=== PATIENT | female | born 1945 | race Caucasian/White ===

== ENCOUNTER 2023-10-06 00:20 | Inpatient (IN) | payer MEDICARE, BC ==
[2023-10-06] MEDS ORDERED: Furosemide 40 MG (4 mL) VIAL ONE ×2 (01:16→13:59)
[2023-10-06 02:17] LABS: Critical Call Chem Troponin I NUR.SM26@0215; Troponin I 0.294 ng/mL (< 0.028)
[2023-10-06] MEDS ORDERED: Ondansetron ODT 4 MG TAB PO PRN (02:20)
[2023-10-06] MEDS ORDERED: Calcium Carbonate 500 MG ChewTAB PO PRN (02:20)
[2023-10-06] MEDS ORDERED: Acetaminophen 325 MG TAB PO PRN (02:20)
[2023-10-06] MEDS ORDERED: dilTIAZem 125 MG, Admixture Fee 1 EACH in Sodium Chloride 0.9% 100 ML IVPB SCH (02:30)
[2023-10-06] MEDS ORDERED: dilTIAZem 125 MG in Sodium Chloride 0.9% 100 ML IVPB SCH (02:30)
[2023-10-06 04:22] LABS: Hematocrit 33.2 % (36.0-47.0); Hemoglobin 10.5 g/dL (12.0-16.0); Manual Diff?? YES; Mean Corpuscular HGB CONC 31.6 g/dL (32.0-36.0); Mean Corpuscular Hemoglobin 27.4 pg (27.0-31.0); Mean Corpuscular Volume 86.7 fl (78.0-98.0); Mean Platelet Volume 9.6 fL (7.4-10.4); Platelet Count 281 10x3/uL (130-400); RBC Distribution Width 13.8 % (11.5-14.5); Red Blood Cell (RBC) Count 3.83 mill/uL (4.20-5.40); White Blood Cell (WBC) Count 14.9 10x3/uL (4.8-10.8)
[2023-10-06 04:28] LABS: Delete Auto Diff?? YES
[2023-10-06 05:00] LABS: ALT (SGPT) 31 U/L (8-55); AST (SGOT) 29 U/L (5-34); Albumin 3.2 g/dL (3.4-4.8); Alkaline Phosphatase 209 U/L (40-110); Anion Gap 16 mmol/L (10-20); BUN (Urea Nitrogen) 28 mg/dL (9.8-20.1); Bilirubin, Total 1.5 mg/dL (0.2-1.2); Calc. Creatinine Clearance 0 mL/min (70-130); Calcium 8.8 mg/dL (7.8-10.44); Carbon Dioxide 17 mmol/L (23-31); Chloride 100 mmol/L (98-107); Estimated GFR 25; Globulin 3.6 g/dL (2.4-3.5); Glucose 150 mg/dL (83-110); Potassium 4.8 mmol/L (3.5-5.1); Protein, Total 6.8 g/dL (5.8-8.1); Sodium 128 mmol/L (136-145)
[2023-10-06 05:02] LABS: Band 19 % (5-11); Burr Cells SLIGHT = 2-5 cells HPF (0-1); CellaVision Operator ID lab.abc; Large Platelets 3.9 % (0-5); Lymphocytes 4 % (21-51); Metamyelocyte 1 % (0-0); Monocytes 2 % (0-10); Neutrophil 73 % (42-75); Platelet Adequacy Comment Platelets Normal; Polychromasia SLIGHT = 2-3 cells HPF (0-2); Reactive Lymphocytes 1 % (0-10); Total Cell Count 103; Toxic Granulation SLIGHT
[2023-10-06 05:12] LABS: Critical Call Chem Troponin I NUR.LM20@0510
[2023-10-06] MEDS ORDERED: Aspirin 325 mg Enteric Coated Tablet PO SCH (05:30)
[2023-10-06] MEDS ORDERED: Aspirin 81 mg Enteric Coated Tablet ONE (06:04)
[2023-10-06] MEDS ORDERED: Aspirin 325 MG TAB ONE (06:05)
[2023-10-06 07:14] LABS: Critical Call Chem Troponin I NUR.VB5@0714; Troponin I 0.562 ng/mL (< 0.028)
[2023-10-06] MEDS ORDERED: Doxycycline 100 MG CAP ONE (08:42)
[2023-10-06] MEDS ORDERED: Apixaban 5 MG TAB ONE (08:42)
[2023-10-06] MEDS ORDERED: Famotidine 20 MG TAB ONE (08:42)
[2023-10-06] MEDS ORDERED: cefTRIAXone (ROCEPHIN) 1 GM VIAL ONE (08:42)
[2023-10-06] MEDS ORDERED: Carvedilol 6.25 MG TAB ONE (08:44)
[2023-10-06] MEDS ORDERED: Amiodarone 200 MG TAB ONE (08:44)
[2023-10-06] MEDS ORDERED: Losartan 25 MG TAB ONE ×2 (08:51→08:58)
[2023-10-06] MEDS ORDERED: Losartan 25 MG TAB PO SCH (09:00)
[2023-10-06] MEDS ORDERED: cefTRIAXone\\ROCEPHIN 1 GM in Sodium Chloride 0.9% 100 ML IVPB SCH (09:00)
[2023-10-06] MEDS ORDERED: Famotidine 20 MG TAB PO SCH (09:00)
[2023-10-06] MEDS: Apixaban 5 MG TAB PO SCH (09:00)
[2023-10-06] MEDS: Doxycycline 100 MG CAP PO SCH ×2 (09:01→20:57)
[2023-10-06] MEDS: Rosuvastatin 20 MG TAB PO SCH (09:17)
[2023-10-06] MEDS: Furosemide 40 MG (4 mL) VIAL SLOW IVP SCH (14:07)
[2023-10-06 18:23] LABS: Strep pneumo Urine Ag NEGATIVE (NEGATIVE)
[2023-10-06 18:27] LABS: Legionella Urinary Ag Negative (Negative)
[2023-10-06] MEDS: Ipratropium/Albuterol 3 ML NEB NEB SCH (18:47)
[2023-10-06] MEDS: Metoprolol Tartrate 25 MG TAB PO SCH (20:58)
[2023-10-07 04:31] LABS: #Basophils 0.2 thou/uL (0.0-0.2); #Monocytes 1.4 thou/uL (0.11-0.59); #Neutrophils 21.2 thou/uL (1.40-6.50); %Basophils 0.7 % (0.0-1.0); %Eosinophils 0.1 % (0.0-10.0); %Lymphocytes 4.1 % (21.0-51.0); %Monocytes 5.7 % (0.0-10.0); Hematocrit 34.4 % (36.0-47.0); Hemoglobin 10.6 g/dL (12.0-16.0); Mean Corpuscular HGB CONC 30.8 g/dL (32.0-36.0); Mean Corpuscular Hemoglobin 27.5 pg (27.0-31.0); Mean Corpuscular Volume 89.1 fl (78.0-98.0); Mean Platelet Volume 9.3 fL (7.4-10.4); Platelet Count 378 10x3/uL (130-400); Red Blood Cell (RBC) Count 3.86 mill/uL (4.20-5.40); White Blood Cell (WBC) Count 24.4 10x3/uL (4.8-10.8)
[2023-10-07 04:51] LABS: Anion Gap 16 mmol/L (10-20); BUN (Urea Nitrogen) 44 mg/dL (9.8-20.1); Calc. Creatinine Clearance 11 mL/min (70-130); Carbon Dioxide 17 mmol/L (23-31); Chloride 101 mmol/L (98-107); Estimated GFR 17; Glucose 139 mg/dL (83-110); Potassium 4.8 mmol/L (3.5-5.1); Sodium 129 mmol/L (136-145)
[2023-10-07] MEDS: Furosemide 40 MG (4 mL) VIAL SLOW IVP SCH (05:08)
[2023-10-07] MEDS: Ipratropium/Albuterol 3 ML NEB NEB SCH ×2 (07:17→18:49)
[2023-10-07] MEDS ORDERED: hydrALAZINE 20 MG/ML VIAL SLOW IVP PRN (08:00)
[2023-10-07] MEDS ORDERED: Piperacillin/Tazobactam 3.375 GM in Sodium Chloride 0.9% 100 ML IVPB SCH (08:30)
[2023-10-07] MEDS ORDERED: Sodium Chloride 0.9% 1,000 ML IV SCH (09:00)
[2023-10-07] MEDS: Metoprolol Tartrate 25 MG TAB PO SCH ×2 (09:23→21:21)
[2023-10-07] MEDS: Apixaban 5 MG TAB PO SCH ×2 (09:23→21:21)
[2023-10-07] MEDS: Rosuvastatin 20 MG TAB PO SCH (09:23)
[2023-10-07 09:24] LABS: Lactic Acid 1.2 mmol/L (0.5-2.2)
[2023-10-07] MEDS: Piperacillin/Tazobactam 3.375 GM in Sodium Chloride 0.9% 100 ML IVPB SCH (13:17)
[2023-10-07] MEDS: guaiFENesin/DM ER PO PRN (21:22)
[2023-10-08] MEDS: Piperacillin/Tazobactam 3.375 GM in Sodium Chloride 0.9% 100 ML IVPB SCH ×2 (01:31→12:44)
[2023-10-08] MEDS: Ipratropium/Albuterol 3 ML NEB NEB SCH ×2 (07:34→19:04)
[2023-10-08] MEDS: Famotidine 20 MG TAB PO SCH (08:58)
[2023-10-08] MEDS: Apixaban 5 MG TAB PO SCH ×2 (08:59→22:39)
[2023-10-08] MEDS: Metoprolol Tartrate 25 MG TAB PO SCH ×2 (08:59→22:39)
[2023-10-08] MEDS: Rosuvastatin 20 MG TAB PO SCH (08:59)
[2023-10-08] MEDS: guaiFENesin/DM ER PO PRN ×2 (09:01→22:42)
[2023-10-08 10:20] LABS: Hematocrit 36.1 % (36.0-47.0); Hemoglobin 10.7 g/dL (12.0-16.0); Manual Diff?? YES; Mean Corpuscular HGB CONC 29.6 g/dL (32.0-36.0); Mean Corpuscular Hemoglobin 27.6 pg (27.0-31.0); Mean Corpuscular Volume 93.3 fl (78.0-98.0); Mean Platelet Volume 8.9 fL (7.4-10.4); Platelet Count 348 10x3/uL (130-400); RBC Distribution Width 14.1 % (11.5-14.5); Red Blood Cell (RBC) Count 3.87 mill/uL (4.20-5.40); White Blood Cell (WBC) Count 23.9 10x3/uL (4.8-10.8)
[2023-10-08 10:25] LABS: Delete Auto Diff?? YES
[2023-10-08 10:37] LABS: ALT (SGPT) 31 U/L (8-55); AST (SGOT) 35 U/L (5-34); Albumin 3.3 g/dL (3.4-4.8); Alkaline Phosphatase 181 U/L (40-110); Anion Gap 16 mmol/L (10-20); BUN (Urea Nitrogen) 50 mg/dL (9.8-20.1); Bilirubin, Total 0.9 mg/dL (0.2-1.2); Calc. Creatinine Clearance 23 mL/min (70-130); Calcium 8.9 mg/dL (7.8-10.44); Carbon Dioxide 18 mmol/L (23-31); Chloride 102 mmol/L (98-107); Estimated GFR 16; Globulin 3.6 g/dL (2.4-3.5); Glucose 96 mg/dL (83-110); Potassium 4.8 mmol/L (3.5-5.1); Protein, Total 6.9 g/dL (5.8-8.1); Sodium 131 mmol/L (136-145)
[2023-10-08 10:57] LABS: Band 13 % (5-11); Burr Cells SLIGHT = 2-5 cells HPF (0-1); CellaVision Operator ID LAB.KW3; Lymphocytes 5 % (21-51); Metamyelocyte 2 % (0-0); Monocytes 3 % (0-10); Neutrophil 75 % (42-75); Platelet Adequacy Comment Platelets Normal; Poikilocytosis SLIGHT = 6-15 cells HPF (0-5); Polychromasia SLIGHT = 2-3 cells HPF (0-2); Reactive Lymphocytes 1 % (0-10); Schistocytes SLIGHT = 2-5 cells HPF (0-1); Total Cell Count 101
[2023-10-09] MEDS: Piperacillin/Tazobactam 3.375 GM in Sodium Chloride 0.9% 100 ML IVPB SCH ×2 (03:04→14:02)
[2023-10-09] MEDS: Ipratropium/Albuterol 3 ML NEB NEB SCH ×2 (07:25→19:06)
[2023-10-09] MEDS ORDERED: Sodium Chloride 0.9% 1,000 ML IV SCH (08:45)
[2023-10-09] MEDS: Metoprolol Tartrate 25 MG TAB PO SCH ×2 (09:12→21:21)
[2023-10-09] MEDS: guaiFENesin/DM ER PO PRN ×2 (09:12→21:21)
[2023-10-09] MEDS: Rosuvastatin 20 MG TAB PO SCH (09:12)
[2023-10-09] MEDS: Apixaban 5 MG TAB PO SCH ×2 (09:12→21:21)
[2023-10-09 10:45] LABS: Anion Gap 12 mmol/L (10-20); BUN (Urea Nitrogen) 45 mg/dL (9.8-20.1); Calc. Creatinine Clearance 26 mL/min (70-130); Calcium 8.7 mg/dL (7.8-10.44); Carbon Dioxide 23 mmol/L (23-31); Chloride 103 mmol/L (98-107); Estimated GFR 18; Glucose 144 mg/dL (83-110); Potassium 4.1 mmol/L (3.5-5.1); Sodium 134 mmol/L (136-145)
[2023-10-09] MEDS: QUEtiapine 25 MG TAB PO SCH (21:20)
[2023-10-10] MEDS: Piperacillin/Tazobactam 3.375 GM in Sodium Chloride 0.9% 100 ML IVPB SCH ×2 (00:54→13:11)
[2023-10-10 04:11] LABS: Hematocrit 31.4 % (36.0-47.0); Hemoglobin 10.1 g/dL (12.0-16.0); Manual Diff?? YES; Mean Corpuscular HGB CONC 32.2 g/dL (32.0-36.0); Mean Platelet Volume 8.7 fL (7.4-10.4); Platelet Count 275 10x3/uL (130-400); RBC Distribution Width 13.6 % (11.5-14.5); Red Blood Cell (RBC) Count 3.61 mill/uL (4.20-5.40); White Blood Cell (WBC) Count 21.8 10x3/uL (4.8-10.8)
[2023-10-10 04:14] LABS: Delete Auto Diff?? YES
[2023-10-10 04:30] LABS: Anion Gap 13 mmol/L (10-20); BUN (Urea Nitrogen) 36 mg/dL (9.8-20.1); Calc. Creatinine Clearance 29 mL/min (70-130); Calcium 8.8 mg/dL (7.8-10.44); Carbon Dioxide 22 mmol/L (23-31); Chloride 103 mmol/L (98-107); Estimated GFR 21; Glucose 99 mg/dL (83-110); Potassium 3.9 mmol/L (3.5-5.1); Sodium 134 mmol/L (136-145)
[2023-10-10 04:59] LABS: Band 1 % (5-11); Burr Cells SLIGHT = 2-5 cells HPF (0-1); CellaVision Operator ID lab.sh2; Lymphocytes 9 % (21-51); Monocytes 11 % (0-10); Neutrophil 79 % (42-75); Ovalocytes SLIGHT = 2-5 cells HPF (0-1); Platelet Adequacy Comment Platelets Normal; Polychromasia SLIGHT = 2-3 cells HPF (0-2); Total Cell Count 101
[2023-10-10] MEDS: Ipratropium/Albuterol 3 ML NEB NEB SCH ×2 (07:33→18:48)
[2023-10-10] MEDS ORDERED: Amlodipine 5 MG TAB PO SCH (09:00)
[2023-10-10] MEDS: Rosuvastatin 20 MG TAB PO SCH (09:38)
[2023-10-10] MEDS: Apixaban 5 MG TAB PO SCH ×2 (09:38→20:40)
[2023-10-10] MEDS: Metoprolol Tartrate 25 MG TAB PO SCH ×2 (09:38→20:40)
[2023-10-10] MEDS: Famotidine 20 MG TAB PO SCH (09:38)
[2023-10-10] MEDS ORDERED: Piperacillin/Tazobactam 3.375 GM VIAL ONE ×2 (12:40→12:56)
[2023-10-10] MEDS ORDERED: Gabapentin 100 MG CAP PO SCH (14:00)
[2023-10-10] MEDS: QUEtiapine 25 MG TAB PO SCH (20:40)
[2023-10-11] MEDS: Piperacillin/Tazobactam 3.375 GM in Sodium Chloride 0.9% 100 ML IVPB SCH ×3 (00:55→20:48)
[2023-10-11 07:30] LABS: #Basophils 0.2 thou/uL (0.0-0.2); #Eosinphils 0.2 thou/uL (0.0-0.7); #Monocytes 1.7 thou/uL (0.11-0.59); %Basophils 0.9 % (0.0-1.0); %Eosinophils 1.1 % (0.0-10.0); %Lymphocytes 8.3 % (21.0-51.0); %Monocytes 8.9 % (0.0-10.0); %Neutrophils 72.1 % (42.0-75.0); Hematocrit 33.1 % (36.0-47.0); Hemoglobin 10.4 g/dL (12.0-16.0); Manual Diff?? YES; Mean Corpuscular HGB CONC 31.4 g/dL (32.0-36.0); Mean Corpuscular Hemoglobin 27.4 pg (27.0-31.0); Mean Corpuscular Volume 87.3 fl (78.0-98.0); Platelet Count 274 10x3/uL (130-400); RBC Distribution Width 13.8 % (11.5-14.5); Red Blood Cell (RBC) Count 3.79 mill/uL (4.20-5.40); White Blood Cell (WBC) Count 19.5 10x3/uL (4.8-10.8)
[2023-10-11] MEDS: Ipratropium/Albuterol 3 ML NEB NEB SCH ×2 (07:39→18:54)
[2023-10-11 07:42] LABS: Anion Gap 14 mmol/L (10-20); BUN (Urea Nitrogen) 26 mg/dL (9.8-20.1); Calc. Creatinine Clearance 33 mL/min (70-130); Carbon Dioxide 24 mmol/L (23-31); Chloride 103 mmol/L (98-107); Estimated GFR 25; Glucose 93 mg/dL (83-110); Magnesium 1.8 mg/dL (1.6-2.6); Potassium 3.9 mmol/L (3.5-5.1); Sodium 137 mmol/L (136-145)
[2023-10-11 08:14] LABS: Band 5 % (5-11); Burr Cells SLIGHT = 2-5 cells HPF (0-1); CellaVision Operator ID LAB.KW3; Lymphocytes 8 % (21-51); Metamyelocyte 2 % (0-0); Monocytes 6 % (0-10); Myelocyte 1 % (0-0); Neutrophil 78 % (42-75); Ovalocytes SLIGHT = 2-5 cells HPF (0-1); Platelet Adequacy Comment Platelets Normal; Poikilocytosis MODERATE=16-30 cells HPF (0-5); Polychromasia SLIGHT = 2-3 cells HPF (0-2); Total Cell Count 100
[2023-10-11] MEDS: Amlodipine 5 MG TAB PO SCH ×2 (09:10→20:48)
[2023-10-11] MEDS: Rosuvastatin 20 MG TAB PO SCH (09:10)
[2023-10-11] MEDS: Metoprolol Tartrate 25 MG TAB PO SCH ×2 (09:10→20:48)
[2023-10-11] MEDS: Apixaban 5 MG TAB PO SCH ×2 (09:10→20:48)
[2023-10-11] MEDS: Gabapentin 100 MG CAP PO SCH (09:11)
[2023-10-11] MEDS: QUEtiapine 25 MG TAB PO SCH (20:49)
[2023-10-12] MEDS: Piperacillin/Tazobactam 3.375 GM in Sodium Chloride 0.9% 100 ML IVPB SCH ×3 (03:06→20:41)
[2023-10-12 06:20] LABS: Hematocrit 34.9 % (36.0-47.0); Manual Diff?? YES; Mean Corpuscular HGB CONC 31.5 g/dL (32.0-36.0); Mean Corpuscular Hemoglobin 27.5 pg (27.0-31.0); Mean Corpuscular Volume 87.3 fl (78.0-98.0); Mean Platelet Volume 9.2 fL (7.4-10.4); Platelet Count 253 10x3/uL (130-400); RBC Distribution Width 13.9 % (11.5-14.5); White Blood Cell (WBC) Count 15.2 10x3/uL (4.8-10.8)
[2023-10-12 06:28] LABS: Delete Auto Diff?? YES
[2023-10-12 06:37] LABS: ALT (SGPT) 18 U/L (8-55); AST (SGOT) 15 U/L (5-34); Albumin 3.1 g/dL (3.4-4.8); Alkaline Phosphatase 114 U/L (40-110); Anion Gap 13 mmol/L (10-20); BUN (Urea Nitrogen) 23 mg/dL (9.8-20.1); Calc. Creatinine Clearance 31 mL/min (70-130); Carbon Dioxide 25 mmol/L (23-31); Chloride 105 mmol/L (98-107); Estimated GFR 23; Globulin 3.3 g/dL (2.4-3.5); Glucose 115 mg/dL (83-110); Potassium 3.6 mmol/L (3.5-5.1); Protein, Total 6.4 g/dL (5.8-8.1); Sodium 139 mmol/L (136-145)
[2023-10-12 07:01] LABS: Band 2 % (5-11); Burr Cells SLIGHT = 2-5 cells HPF (0-1); CellaVision Operator ID lab.sh2; Eosinophils 2 % (0-10); Lymphocytes 9 % (21-51); Monocytes 7 % (0-10); Neutrophil 79 % (42-75); Platelet Adequacy Comment Platelets Normal; Polychromasia SLIGHT = 2-3 cells HPF (0-2); Smudge Cells 16.7 %; Tear Drops SLIGHT = 2-5 cells HPF (0-1); Total Cell Count 102; Toxic Granulation SLIGHT; Vacuoles SLIGHT
[2023-10-12] MEDS: Ipratropium/Albuterol 3 ML NEB NEB SCH ×2 (07:09→18:32)
[2023-10-12] MEDS: Amlodipine 5 MG TAB PO SCH (09:05)
[2023-10-12] MEDS: Gabapentin 100 MG CAP PO SCH (09:06)
[2023-10-12] MEDS: Rosuvastatin 20 MG TAB PO SCH (09:06)
[2023-10-12] MEDS: Famotidine 20 MG TAB PO SCH (09:07)
[2023-10-12] MEDS: Metoprolol Tartrate 25 MG TAB PO SCH ×2 (09:07→20:41)
[2023-10-12] MEDS: Apixaban 5 MG TAB PO SCH ×2 (09:07→20:41)
[2023-10-12] MEDS ORDERED: Digoxin 0.5 MG/2 ML AMP ONE (09:23)
[2023-10-12] MEDS ORDERED: Digoxin 0.5 MG/2 ML AMP SLOW IVP SCH (09:30)
[2023-10-12] MEDS ORDERED: dilTIAZem 25 MG/5 ML VIAL SLOW IVP SCH (10:00)
[2023-10-12] MEDS ORDERED: dilTIAZem 125 MG, Admixture Fee 1 EACH in Sodium Chloride 0.9% 100 ML IVPB SCH (11:00)
[2023-10-12] MEDS ORDERED: Amiodarone 450 MG in Dextrose 5% in Water 250 ML IVPB SCH (13:45)
[2023-10-12] MEDS ORDERED: Amiodarone 150 MG, Admixture Fee 1 EACH in Dextrose 5% in Water 100 ML IVPB SCH (14:30)
[2023-10-12] MEDS: hydrALAZINE 10 MG TAB PO SCH ×2 (16:33→20:42)
[2023-10-12] MEDS: QUEtiapine 25 MG TAB PO SCH (20:41)
[2023-10-13 06:37] LABS: Hematocrit 32.9 % (36.0-47.0); Hemoglobin 10.4 g/dL (12.0-16.0); Manual Diff?? YES; Mean Corpuscular HGB CONC 31.6 g/dL (32.0-36.0); Mean Corpuscular Hemoglobin 27.7 pg (27.0-31.0); Mean Corpuscular Volume 87.7 fl (78.0-98.0); Mean Platelet Volume 9.2 fL (7.4-10.4); Platelet Count 268 10x3/uL (130-400); RBC Distribution Width 13.9 % (11.5-14.5); Red Blood Cell (RBC) Count 3.75 mill/uL (4.20-5.40); White Blood Cell (WBC) Count 12.4 10x3/uL (4.8-10.8)
[2023-10-13 06:42] LABS: Delete Auto Diff?? YES
[2023-10-13 06:52] LABS: Anion Gap 14 mmol/L (10-20); BUN (Urea Nitrogen) 20 mg/dL (9.8-20.1); Calc. Creatinine Clearance 31 mL/min (70-130); Calcium 8.6 mg/dL (7.8-10.44); Carbon Dioxide 26 mmol/L (23-31); Chloride 104 mmol/L (98-107); Estimated GFR 22; Glucose 96 mg/dL (83-110); Potassium 3.6 mmol/L (3.5-5.1); Sodium 140 mmol/L (136-145)
[2023-10-13] MEDS: Ipratropium/Albuterol 3 ML NEB NEB SCH ×2 (07:20→18:35)
[2023-10-13 08:16] LABS: Band 6 % (5-11); CellaVision Operator ID LAB.GE; Eosinophils 10 % (0-10); Large Platelets 1.9 % (0-5); Lymphocytes 10 % (21-51); Metamyelocyte 2 % (0-0); Monocytes 10 % (0-10); Neutrophil 60 % (42-75); Nucleated RBC (Manual Ct) 2 % (0); Other Cell Types 1.9; Platelet Adequacy Comment Platelets Normal; Polychromasia SLIGHT = 2-3 cells HPF (0-2); Total Cell Count 103
[2023-10-13] MEDS: Dronedarone HCl 400 MG TAB PO SCH ×2 (08:56→17:14)
[2023-10-13] MEDS: Metoprolol Tartrate 25 MG TAB PO SCH ×2 (08:56→20:37)
[2023-10-13] MEDS: Apixaban 5 MG TAB PO SCH ×2 (08:56→20:37)
[2023-10-13] MEDS: Amlodipine 5 MG TAB PO SCH (08:58)
[2023-10-13] MEDS: Rosuvastatin 20 MG TAB PO SCH (08:58)
[2023-10-13] MEDS: hydrALAZINE 10 MG TAB PO SCH ×3 (08:59→20:38)
[2023-10-13] MEDS: Gabapentin 100 MG CAP PO SCH (09:00)
[2023-10-13] MEDS ORDERED: Benzonatate 100 MG CAP PO PRN (09:56)
[2023-10-13] MEDS ORDERED: Sodium Chloride 0.65% Nasal 44 ML BOT EA NARE PRN (09:56)
[2023-10-13] MEDS ORDERED: Loratadine 10 MG TAB PO PRN (09:56)
[2023-10-13] MEDS ORDERED: Artificial Tear Sol 15 ML BOT EA EYE PRN (09:56)
[2023-10-13] MEDS ORDERED: Moisturizing Cream (Eucerin) 113 GM JAR TOP PRN (09:56)
[2023-10-13] MEDS ORDERED: GUAIFENESIN SF SOLN 200 MG/10 ML UDCUP PO PRN (09:56)
[2023-10-13] MEDS ORDERED: Benzocaine/Menthol 1 LOZ LOZ PO PRN (09:56)
[2023-10-13] MEDS: Piperacillin/Tazobactam 3.375 GM in Sodium Chloride 0.9% 100 ML IVPB SCH ×3 (12:55→20:37)
[2023-10-13 13:53] VITALS: BMI 33.7
[2023-10-13] MEDS: QUEtiapine 25 MG TAB PO SCH (20:38)
[2023-10-14 06:39] LABS: #Basophils 0.1 thou/uL (0.0-0.2); #Eosinphils 0.6 thou/uL (0.0-0.7); #Monocytes 0.9 thou/uL (0.11-0.59); #Neutrophils 8.2 thou/uL (1.40-6.50); %Basophils 0.4 % (0.0-1.0); %Eosinophils 4.9 % (0.0-10.0); %Monocytes 7.2 % (0.0-10.0); %Neutrophils 66.9 % (42.0-75.0); Hematocrit 31.6 % (36.0-47.0); Mean Corpuscular HGB CONC 31.6 g/dL (32.0-36.0); Mean Corpuscular Hemoglobin 27.9 pg (27.0-31.0); Mean Corpuscular Volume 88.3 fl (78.0-98.0); Mean Platelet Volume 9.3 fL (7.4-10.4); Platelet Count 243 10x3/uL (130-400); Red Blood Cell (RBC) Count 3.58 mill/uL (4.20-5.40); White Blood Cell (WBC) Count 12.3 10x3/uL (4.8-10.8)
[2023-10-14 07:10] LABS: ALT (SGPT) 17 U/L (8-55); AST (SGOT) 16 U/L (5-34); Albumin 2.9 g/dL (3.4-4.8); Alkaline Phosphatase 82 U/L (40-110); Anion Gap 12 mmol/L (10-20); BUN (Urea Nitrogen) 20 mg/dL (9.8-20.1); Bilirubin, Direct 0.4 mg/dL (0.1-0.3); Bilirubin, Total 0.8 mg/dL (0.2-1.2); Calc. Creatinine Clearance 29 mL/min (70-130); Calcium 8.8 mg/dL (7.8-10.44); Carbon Dioxide 26 mmol/L (23-31); Chloride 106 mmol/L (98-107); Estimated GFR 21; Glucose 86 mg/dL (83-110); Potassium 3.5 mmol/L (3.5-5.1); Protein, Total 6.1 g/dL (5.8-8.1); Sodium 140 mmol/L (136-145)
[2023-10-14 07:20] LABS: Free T4 (Free Thyroxine) 0.99 ng/dL (0.70-1.48); Thyroid Stimulating Hormone 5.2277 uIU/mL (0.35-4.94)
[2023-10-14] MEDS: Ipratropium/Albuterol 3 ML NEB NEB SCH (07:38)
[2023-10-14] MEDS: hydrALAZINE 10 MG TAB PO SCH (08:48)
[2023-10-14] MEDS: Dronedarone HCl 400 MG TAB PO SCH (08:49)
[2023-10-14] MEDS: Amlodipine 5 MG TAB PO SCH (08:49)
[2023-10-14] MEDS: Rosuvastatin 20 MG TAB PO SCH (08:49)
[2023-10-14] MEDS: Famotidine 20 MG TAB PO SCH (08:50)
[2023-10-14] MEDS: Metoprolol Tartrate 25 MG TAB PO SCH (08:50)
[2023-10-14] MEDS: Gabapentin 100 MG CAP PO SCH (08:50)
[2023-10-14] MEDS: Apixaban 5 MG TAB PO SCH (08:50)
[2023-10-14 12:32] VITALS: BP 136/62; TEMP 98.1
== END 2023-10-14 12:45 | disposition home or self-care (01) | DRG 280 ==
LOC: ERS 00:20 → ERHOLD 02:27 → 2NO 15:24
PROVIDERS: ADMIT Student in an Organized Health Care Education/Training Program; ATTEND Family Medicine
DX: I13.2 Hypertensive heart and chronic kidney disease with heart failure and with stage 5 chronic kidney disease, or end stage renal disease (principal); I21.A1 Myocardial infarction type 2; I50.33 Acute on chronic diastolic (congestive) heart failure; J18.9 Pneumonia, unspecified organism; J96.01 Acute respiratory failure with hypoxia; N18.6 End stage renal disease; N17.9 Acute kidney failure, unspecified; E87.1 Hypo-osmolality and hyponatremia; E87.20 Acidosis, unspecified; E78.5 Hyperlipidemia, unspecified; Z90.49 Acquired absence of other specified parts of digestive tract; Z79.899 Other long term (current) drug therapy; Z79.01 Long term (current) use of anticoagulants; I48.0 Paroxysmal atrial fibrillation; N18.30 Chronic kidney disease, stage 3 unspecified; E88.09 Other disorders of plasma-protein metabolism, not elsewhere classified; D63.1 Anemia in chronic kidney disease; G47.00 Insomnia, unspecified
CPT/HCPCS: 36415; 71045; 80048; 80053; 80076; 83036; 83605; 83735; 83880; 84145; 84439; 84443; 84481; 84484; 85025; 87040; 87449; 87899; 93005; 93306; 94640; 96365; 96366; 96375; J0282; J0360; J0696; J1160; J1940; J2543; J3490; J7050; J7070; J7620

== ENCOUNTER 2023-11-12 14:24 | Inpatient (IN) | payer MEDICARE, BC ==
[2023-11-12] MEDS ORDERED: Morphine 2 MG/ML VIAL SLOW IVP PRN (15:44)
[2023-11-12] MEDS ORDERED: HYDROcodone/Acetaminophen 5/325 mg Tablet PO PRN (15:44)
[2023-11-12] MEDS: traMADol HCl 50 MG TAB PO PRN (22:22)
[2023-11-12] MEDS: Ondansetron PF 4 MG/2 ML Vial IVP PRN (22:23)
[2023-11-12] MEDS: Sodium Chloride 0.9% 1,000 ML IV SCH (22:53)
[2023-11-13 05:24] LABS: #Basophils 0.1 thou/uL (0.0-0.2); #Eosinphils 0.1 thou/uL (0.0-0.7); #Monocytes 1.3 thou/uL (0.11-0.59); %Basophils 0.4 % (0.0-1.0); %Eosinophils 0.4 % (0.0-10.0); %Monocytes 9.8 % (0.0-10.0); %Neutrophils 75.9 % (42.0-75.0); Hemoglobin 11.6 g/dL (12.0-16.0); Mean Corpuscular HGB CONC 32.2 g/dL (32.0-36.0); Mean Corpuscular Hemoglobin 27.5 pg (27.0-31.0); Mean Corpuscular Volume 85.3 fl (78.0-98.0); Mean Platelet Volume 10.6 fL (7.4-10.4); Platelet Count 187 10x3/uL (130-400); RBC Distribution Width 14.6 % (11.5-14.5); Red Blood Cell (RBC) Count 4.22 mill/uL (4.20-5.40); White Blood Cell (WBC) Count 13.2 10x3/uL (4.8-10.8)
[2023-11-13 05:59] LABS: Anion Gap 17 mmol/L (10-20); BUN (Urea Nitrogen) 57 mg/dL (9.8-20.1); Calc. Creatinine Clearance 14 mL/min (70-130); Calcium 9.2 mg/dL (7.8-10.44); Carbon Dioxide 27 mmol/L (23-31); Chloride 90 mmol/L (98-107); Estimated GFR 10; Glucose 77 mg/dL (83-110); Potassium 4.1 mmol/L (3.5-5.1); Sodium 130 mmol/L (136-145)
[2023-11-13] MEDS ORDERED: fentaNYL PF 100 MCG/2 ML SYRINGE ONE (10:27)
[2023-11-13] MEDS ORDERED: PROPOFOL 20 ML ONE (10:27)
[2023-11-13] MEDS ORDERED: dilTIAZem 125 MG in Sodium Chloride 0.9% 100 ML IVPB SCH (11:15)
[2023-11-13] MEDS: Sodium Chloride 0.9% 1,000 ML IV SCH ×2 (12:00→22:00)
[2023-11-13] MEDS ORDERED: Amiodarone 450 MG in Dextrose 5% in Water 250 ML IVPB SCH (12:00)
[2023-11-13] MEDS: Digoxin 0.5 MG/2 ML AMP SLOW IVP SCH (12:05)
[2023-11-13] MEDS: Digoxin 0.5 MG/2 ML AMP ONE (12:22)
[2023-11-13] MEDS: Amiodarone 150 MG, Admixture Fee 1 EACH in Dextrose 5% in Water 100 ML IVPB SCH (13:00)
[2023-11-13] MEDS: Amiodarone 450 MG, Admixture Fee 1 EACH in Dextrose 5% in Water 250 ML IVPB SCH (13:10)
[2023-11-13] MEDS: Enoxaparin 100 MG (1 mL) SYRINGE SC SCH (15:23)
[2023-11-14] MEDS: Sodium Chloride 0.9% 500 ML IV SCH (01:30)
[2023-11-14 07:31] LABS: #Eosinphils 0.1 thou/uL (0.0-0.7); #Monocytes 1.1 thou/uL (0.11-0.59); #Neutrophils 5.2 thou/uL (1.40-6.50); %Basophils 0.3 % (0.0-1.0); %Eosinophils 0.7 % (0.0-10.0); %Lymphocytes 17.3 % (21.0-51.0); %Monocytes 13.8 % (0.0-10.0); %Neutrophils 67.6 % (42.0-75.0); Hematocrit 33.3 % (36.0-47.0); Hemoglobin 10.6 g/dL (12.0-16.0); Mean Corpuscular HGB CONC 31.8 g/dL (32.0-36.0); Mean Corpuscular Hemoglobin 27.5 pg (27.0-31.0); Mean Corpuscular Volume 86.5 fl (78.0-98.0); Mean Platelet Volume 10.1 fL (7.4-10.4); Platelet Count 152 10x3/uL (130-400); RBC Distribution Width 14.2 % (11.5-14.5); Red Blood Cell (RBC) Count 3.85 mill/uL (4.20-5.40); White Blood Cell (WBC) Count 7.6 10x3/uL (4.8-10.8)
[2023-11-14 08:00] LABS: ALT (SGPT) 8 U/L (8-55); AST (SGOT) 11 U/L (5-34); Albumin 3.1 g/dL (3.4-4.8); Alkaline Phosphatase 61 U/L (40-110); Anion Gap 13 mmol/L (10-20); BUN (Urea Nitrogen) 53 mg/dL (9.8-20.1); Bilirubin, Total 1.1 mg/dL (0.2-1.2); Calc. Creatinine Clearance 19 mL/min (70-130); Calcium 8.3 mg/dL (7.8-10.44); Carbon Dioxide 27 mmol/L (23-31); Chloride 100 mmol/L (98-107); Estimated GFR 13; Globulin 2.6 g/dL (2.4-3.5); Glucose 73 mg/dL (83-110); Magnesium 1.8 mg/dL (1.6-2.6); Phosphorus 4.2 mg/dL (2.3-4.7); Protein, Total 5.7 g/dL (5.8-8.1); Sodium 136 mmol/L (136-145)
[2023-11-14] MEDS: Digoxin 0.5 MG/2 ML AMP SLOW IVP SCH (10:28)
[2023-11-14] MEDS ORDERED: dilTIAZem 125 MG in Sodium Chloride 0.9% 100 ML IVPB SCH (13:15)
[2023-11-14] MEDS: dilTIAZem 125 MG, Admixture Fee 1 EACH in Sodium Chloride 0.9% 100 ML IVPB SCH (15:57)
[2023-11-14 16:49] LABS: Hematocrit 34.3 % (36.0-47.0); Hemoglobin 10.9 g/dL (12.0-16.0); Platelet Count 165 10x3/uL (130-400)
[2023-11-14] MEDS: Heparin 25,000 units/D5W 500 ML IVPB SCH (18:40)
[2023-11-15] MEDS: Heparin 10,000 UNITS/ 10 ML VIAL SLOW IVP SCH (01:03)
[2023-11-15 06:02] LABS: #Eosinphils 0.2 thou/uL (0.0-0.7); #Monocytes 1.2 thou/uL (0.11-0.59); #Neutrophils 5.9 thou/uL (1.40-6.50); %Basophils 0.3 % (0.0-1.0); %Eosinophils 1.6 % (0.0-10.0); %Lymphocytes 22.3 % (21.0-51.0); %Monocytes 12.4 % (0.0-10.0); Hematocrit 37.5 % (36.0-47.0); Hemoglobin 11.8 g/dL (12.0-16.0); Mean Corpuscular HGB CONC 31.5 g/dL (32.0-36.0); Mean Corpuscular Hemoglobin 27.1 pg (27.0-31.0); Mean Corpuscular Volume 86.2 fl (78.0-98.0); Mean Platelet Volume 10.5 fL (7.4-10.4); Platelet Count 195 10x3/uL (130-400); RBC Distribution Width 14.3 % (11.5-14.5); Red Blood Cell (RBC) Count 4.35 mill/uL (4.20-5.40); White Blood Cell (WBC) Count 9.3 10x3/uL (4.8-10.8)
[2023-11-15] MEDS ORDERED: traMADol HCl 50 MG TAB PO PRN (06:15)
[2023-11-15 06:25] LABS: ALT (SGPT) 9 U/L (8-55); AST (SGOT) 14 U/L (5-34); Albumin 3.3 g/dL (3.4-4.8); Alkaline Phosphatase 68 U/L (40-110); Anion Gap 19 mmol/L (10-20); BUN (Urea Nitrogen) 44 mg/dL (9.8-20.1); Bilirubin, Total 0.9 mg/dL (0.2-1.2); Calc. Creatinine Clearance 22 mL/min (70-130); Calcium 8.8 mg/dL (7.8-10.44); Carbon Dioxide 20 mmol/L (23-31); Chloride 102 mmol/L (98-107); Estimated GFR 17; Glucose 89 mg/dL (83-110); Potassium 4.1 mmol/L (3.5-5.1); Protein, Total 6.3 g/dL (5.8-8.1); Sodium 137 mmol/L (136-145)
[2023-11-15] MEDS ORDERED: fentaNYL PF 100 MCG/2 ML SYRINGE ONE (11:05)
[2023-11-15] MEDS ORDERED: Rocuronium Bromide 10 MG/ML (10ML VIAL) ONE (11:05)
[2023-11-15] MEDS ORDERED: Lidocaine 2% PF 5 ML VIAL ONE (11:05)
[2023-11-15] MEDS ORDERED: Protamine Sulfate 50 MG/5 ML VIAL ONE (12:06)
[2023-11-15] MEDS ORDERED: Phenylephrine 10 MG/ML VIAL ONE ×2 (12:21→13:15)
[2023-11-15] MEDS ORDERED: Ondansetron HCl/PF 4 MG/2 ML Vial IVP PRN ×2 (12:42→13:58)
[2023-11-15] MEDS ORDERED: PACU-Morphine 4MG/ML VIAL SLOW IVP PRN (12:42)
[2023-11-15] MEDS ORDERED: HYDROmorphone 2 MG/ML VIAL SLOW IVP PRN (12:42)
[2023-11-15] MEDS ORDERED: Promethazine HCl 25 MG/ML VIAL IM PRN ×2 (12:42→13:58)
[2023-11-15] MEDS ORDERED: Heparin 10,000 UNITS/ 10 ML VIAL ONE (12:49)
[2023-11-15] MEDS ORDERED: SUGAMMADEX SODIUM 200 MG/2 ML VIAL ONE (13:18)
[2023-11-15] MEDS ORDERED: Dexamethasone 4 mg/ml Vial ONE (13:20)
[2023-11-15] MEDS ORDERED: Ondansetron PF 4 MG/2 ML Vial ONE (13:20)
[2023-11-15] MEDS ORDERED: HYDROmorphone 0.5 MG/0.5 ML SYRINGE ONE ×2 (13:59→14:27)
[2023-11-15] MEDS ORDERED: Morphine 4 MG/ML VIAL SLOW IVP PRN (15:23)
[2023-11-15] MEDS: Sodium Chloride 0.45% 1,000 ML IV SCH (16:05)
[2023-11-15] MEDS: Morphine 2 MG/ML VIAL SLOW IVP PRN (21:16)
[2023-11-16 04:50] LABS: #Monocytes 0.8 thou/uL (0.11-0.59); #Neutrophils 11.4 thou/uL (1.40-6.50); %Basophils 0.1 % (0.0-1.0); %Lymphocytes 5.7 % (21.0-51.0); %Monocytes 6.2 % (0.0-10.0); %Neutrophils 87.7 % (42.0-75.0); Hematocrit 33.7 % (36.0-47.0); Hemoglobin 10.4 g/dL (12.0-16.0); Mean Corpuscular HGB CONC 30.9 g/dL (32.0-36.0); Mean Corpuscular Hemoglobin 26.6 pg (27.0-31.0); Mean Corpuscular Volume 86.2 fl (78.0-98.0); Mean Platelet Volume 10.1 fL (7.4-10.4); Platelet Count 170 10x3/uL (130-400); RBC Distribution Width 14.1 % (11.5-14.5); Red Blood Cell (RBC) Count 3.91 mill/uL (4.20-5.40)
[2023-11-16 05:17] LABS: ALT (SGPT) 8 U/L (8-55); AST (SGOT) 12 U/L (5-34); Albumin 2.9 g/dL (3.4-4.8); Alkaline Phosphatase 56 U/L (40-110); Anion Gap 16 mmol/L (10-20); BUN (Urea Nitrogen) 38 mg/dL (9.8-20.1); Bilirubin, Total 0.7 mg/dL (0.2-1.2); Calc. Creatinine Clearance 27 mL/min (70-130); Calcium 8.3 mg/dL (7.8-10.44); Carbon Dioxide 22 mmol/L (23-31); Chloride 99 mmol/L (98-107); Estimated GFR 21; Globulin 2.5 g/dL (2.4-3.5); Glucose 162 mg/dL (83-110); Potassium 4.3 mmol/L (3.5-5.1); Protein, Total 5.4 g/dL (5.8-8.1); Sodium 133 mmol/L (136-145)
[2023-11-16] MEDS: dilTIAZem 30 MG TAB PO SCH (12:21)
[2023-11-16] MEDS ORDERED: dilTIAZem 30 MG TAB PO PRN (14:01)
[2023-11-16 17:29] LABS: Hematocrit 30.3 % (36.0-47.0); Hemoglobin 9.7 g/dL (12.0-16.0); Platelet Count 178 10x3/uL (130-400)
[2023-11-16] MEDS: Ondansetron ODT 4 MG TAB PO PRN (21:09)
[2023-11-16] MEDS: Acetaminophen 325 MG TAB PO PRN (21:27)
[2023-11-17 05:02] LABS: #Monocytes 1.1 thou/uL (0.11-0.59); #Neutrophils 11.1 thou/uL (1.40-6.50); %Basophils 0.1 % (0.0-1.0); %Eosinophils 0.1 % (0.0-10.0); %Lymphocytes 8.7 % (21.0-51.0); %Monocytes 7.9 % (0.0-10.0); %Neutrophils 82.6 % (42.0-75.0); Hematocrit 28.9 % (36.0-47.0); Hemoglobin 9.2 g/dL (12.0-16.0); Mean Corpuscular HGB CONC 31.8 g/dL (32.0-36.0); Mean Corpuscular Hemoglobin 27.4 pg (27.0-31.0); Mean Platelet Volume 10.3 fL (7.4-10.4); Platelet Count 166 10x3/uL (130-400); RBC Distribution Width 14.3 % (11.5-14.5); Red Blood Cell (RBC) Count 3.36 mill/uL (4.20-5.40); White Blood Cell (WBC) Count 13.5 10x3/uL (4.8-10.8)
[2023-11-17 05:27] LABS: ALT (SGPT) 8 U/L (8-55); AST (SGOT) 11 U/L (5-34); Albumin 2.8 g/dL (3.4-4.8); Alkaline Phosphatase 57 U/L (40-110); Anion Gap 11 mmol/L (10-20); BUN (Urea Nitrogen) 35 mg/dL (9.8-20.1); Bilirubin, Total 0.8 mg/dL (0.2-1.2); Calc. Creatinine Clearance 32 mL/min (70-130); Calcium 8.4 mg/dL (7.8-10.44); Carbon Dioxide 25 mmol/L (23-31); Chloride 99 mmol/L (98-107); Estimated GFR 24; Globulin 2.5 g/dL (2.4-3.5); Glucose 104 mg/dL (83-110); Potassium 4.1 mmol/L (3.5-5.1); Protein, Total 5.3 g/dL (5.8-8.1); Sodium 131 mmol/L (136-145)
[2023-11-17] MEDS: Furosemide 20 MG TAB PO SCH (08:55)
[2023-11-17 09:21] LABS: Actual Bicarbonate (HCO3a) 21.3 mEq/L (22-28); Analyzer IN Cardio OR; Base Excess (BEa) -1.2 mEq/L (-2.0 to +3.0); Calcium, Ionized (arterial) 1.14 mmol/L (1.12-1.30); Carboxyhemoglobin (COHb) 0.8 gm% (0.0-3.0); Hematocrit-ABG 34 % (36.0-47.0); Hemoglobin (Hb) 11.4 g/dL (12.0-16.0); O2 Tension (PaO2), arterial 428.3 mmHg (> 70.0); pH, Arterial 7.484 (7.35-7.45)
[2023-11-17 09:22] LABS: Puncture Site Arterial Line
[2023-11-17] MEDS ORDERED: Loratadine 10 MG TAB PO SCH (09:45)
[2023-11-17] MEDS: dilTIAZem CD 240 MG CAP PO SCH ×2 (11:21→12:26)
[2023-11-18 04:46] LABS: Anion Gap 15 mmol/L (10-20); BUN (Urea Nitrogen) 36 mg/dL (9.8-20.1); Calc. Creatinine Clearance 29 mL/min (70-130); Calcium 8.6 mg/dL (7.8-10.44); Carbon Dioxide 26 mmol/L (23-31); Chloride 99 mmol/L (98-107); Estimated GFR 22; Glucose 97 mg/dL (83-110); Potassium 4.1 mmol/L (3.5-5.1); Sodium 136 mmol/L (136-145)
[2023-11-18] MEDS: Furosemide 40 MG TAB PO SCH (08:44)
[2023-11-18] MEDS: dilTIAZem CD 240 MG CAP PO SCH (08:44)
[2023-11-18] MEDS: Ergocalciferol 1.25 MG(50,000 UNITS) CAP PO SCH (08:46)
[2023-11-18] MEDS: Senokot S 8.6-50 MG TAB PO SCH (08:47)
[2023-11-18] MEDS: Rosuvastatin 5 MG TAB PO SCH (08:47)
[2023-11-18] MEDS: Polyethylene Glycol 3350 17 GM Packet PO SCH (08:47)
[2023-11-18] MEDS ORDERED: Furosemide 40 MG TAB PO SCH (09:00)
[2023-11-18 09:38] VITALS: BMI 31.4
[2023-11-18] MEDS: Losartan 25 MG TAB PO SCH (12:51)
[2023-11-18 16:25] LABS: Hematocrit 31.5 % (36.0-47.0); Hemoglobin 10.1 g/dL (12.0-16.0); Platelet Count 223 10x3/uL (130-400)
[2023-11-18] MEDS: Apixaban 5 MG TAB PO SCH (20:21)
[2023-11-19 05:41] LABS: #Eosinphils 0.2 thou/uL (0.0-0.7); #Monocytes 1.5 thou/uL (0.11-0.59); #Neutrophils 12.9 thou/uL (1.40-6.50); %Basophils 0.2 % (0.0-1.0); %Eosinophils 1.1 % (0.0-10.0); %Lymphocytes 15.6 % (21.0-51.0); %Monocytes 8.2 % (0.0-10.0); %Neutrophils 72.9 % (42.0-75.0); Hematocrit 31.6 % (36.0-47.0); Mean Corpuscular HGB CONC 31.6 g/dL (32.0-36.0); Mean Corpuscular Hemoglobin 27.1 pg (27.0-31.0); Mean Corpuscular Volume 85.6 fl (78.0-98.0); Platelet Count 234 10x3/uL (130-400); RBC Distribution Width 14.7 % (11.5-14.5); Red Blood Cell (RBC) Count 3.69 mill/uL (4.20-5.40); White Blood Cell (WBC) Count 17.7 10x3/uL (4.8-10.8)
[2023-11-19 06:12] LABS: Anion Gap 14 mmol/L (10-20); BUN (Urea Nitrogen) 36 mg/dL (9.8-20.1); Calc. Creatinine Clearance 27 mL/min (70-130); Calcium 8.9 mg/dL (7.8-10.44); Carbon Dioxide 26 mmol/L (23-31); Chloride 97 mmol/L (98-107); Estimated GFR 21; Glucose 89 mg/dL (83-110); Potassium 3.8 mmol/L (3.5-5.1); Sodium 133 mmol/L (136-145)
[2023-11-19 07:25] LABS: Band 1 % (5-11); CellaVision Operator ID LAB.KW3; Eosinophils 1 % (0-10); Lymphocytes 12 % (21-51); Monocytes 4 % (0-10); Neutrophil 82 % (42-75); Platelet Adequacy Comment Platelets Normal; RBC Morphology Within Normal Limits; Total Cell Count 101
[2023-11-19] MEDS ORDERED: traMADol HCl 50 MG TAB PO PRN (07:47)
[2023-11-19] MEDS: Acetaminophen 500 MG TAB PO SCH (09:33)
[2023-11-19 09:37] VITALS: BP 116/63
[2023-11-19] MEDS ORDERED: Acetaminophen 500 MG TAB PO PRN (10:13)
[2023-11-19 13:17] VITALS: TEMP 98.1
== END 2023-11-19 15:45 | disposition home or self-care (01) | DRG 336 ==
LOC: SJJU 15:17 → CCU 11-13 11:29
PROVIDERS: ADMIT Student in an Organized Health Care Education/Training Program; ATTEND Internal Medicine
PROC: 0DN80ZZ Release Small Intestine, Open Approach (ICD-10-PCS; principal; 2023-11-15)
PROC: 0WQF0ZZ Repair Abdominal Wall, Open Approach (ICD-10-PCS; 2023-11-15)
PROC: 0WJF4ZZ Inspection of Abdominal Wall, Percutaneous Endoscopic Approach (ICD-10-PCS; 2023-11-15)
PROC: 05H533Z Insertion of Infusion Device into Right Subclavian Vein, Percutaneous Approach (ICD-10-PCS; 2023-11-15)
PROC: B5161ZA Fluoroscopy of Right Subclavian Vein using Low Osmolar Contrast, Guidance (ICD-10-PCS; 2023-11-15)
PROC: 0DH67UZ Insertion of Feeding Device into Stomach, Via Natural or Artificial Opening (ICD-10-PCS; 2023-11-15)
PROC: 3E0G76Z Introduction of Nutritional Substance into Upper GI, Via Natural or Artificial Opening (ICD-10-PCS; 2023-11-15)
PROC: 4A033R1 Measurement of Arterial Saturation, Peripheral, Percutaneous Approach (ICD-10-PCS; 2023-11-15)
PROC: 3E033XZ Introduction of Vasopressor into Peripheral Vein, Percutaneous Approach (ICD-10-PCS; 2023-11-15)
PROC: 0DJD4ZZ Inspection of Lower Intestinal Tract, Percutaneous Endoscopic Approach (ICD-10-PCS; 2023-11-15)
PROC: 0JB80ZZ Excision of Abdomen Subcutaneous Tissue and Fascia, Open Approach (ICD-10-PCS; 2023-11-15)
PROC: 3E0M05Z Introduction of Adhesion Barrier into Peritoneal Cavity, Open Approach (ICD-10-PCS; 2023-11-15)
DX: K56.50 Intestinal adhesions [bands], unspecified as to partial versus complete obstruction (principal); E87.1 Hypo-osmolality and hyponatremia; I50.32 Chronic diastolic (congestive) heart failure; I13.2 Hypertensive heart and chronic kidney disease with heart failure and with stage 5 chronic kidney disease, or end stage renal disease; N17.9 Acute kidney failure, unspecified; N18.5 Chronic kidney disease, stage 5; N25.81 Secondary hyperparathyroidism of renal origin; L03.311 Cellulitis of abdominal wall; T81.42XA Infection following a procedure, deep incisional surgical site, initial encounter; E55.9 Vitamin D deficiency, unspecified; K42.9 Umbilical hernia without obstruction or gangrene; I35.0 Nonrheumatic aortic (valve) stenosis; I48.0 Paroxysmal atrial fibrillation; D63.1 Anemia in chronic kidney disease; Z90.11 Acquired absence of right breast and nipple; Z90.12 Acquired absence of left breast and nipple; Z90.49 Acquired absence of other specified parts of digestive tract; Z85.3 Personal history of malignant neoplasm of breast; Z90.710 Acquired absence of both cervix and uterus; Z85.41 Personal history of malignant neoplasm of cervix uteri; Z53.31 Laparoscopic surgical procedure converted to open procedure; Y83.8 Other surgical procedures as the cause of abnormal reaction of the patient, or of later complication, without mention of misadventure at the time of the procedure
CPT/HCPCS: 36415; 36416; 71045; 71046; 76770; 80048; 80053; 82306; 82805; 83735; 83970; 84100; 84484; 85014; 85018; 85025; 85049; 85730; 93005; 93010; 97139; A4314; C1751; C1776; J0282; J1100; J1160; J1170; J1644; J1650; J2001; J2272; J2371; J2405; J2704; J2720; J3490; J7050; J7070; Q0162